=== PATIENT | male | born 2000 | race Hispanic/Latino ===

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

== ENCOUNTER 2020-06-02 12:04 | Emergency (ER) | payer OTHER, SELFPAY ==
[2020-06-02] MEDS ORDERED: Dexamethasone 10 MG/ML VIAL ONE (12:31)
== END 2020-06-02 12:39 | disposition home or self-care (01) ==
LOC: ERS 12:04
DX: S61.210A Laceration without foreign body of right index finger without damage to nail, initial encounter (principal); S61.212A Laceration without foreign body of right middle finger without damage to nail, initial encounter; R05 Cough; R06.2 Wheezing; X58.XXXA Exposure to other specified factors, initial encounter
CPT/HCPCS: 99282; J1100

== ENCOUNTER 2024-05-04 18:19 | Emergency (ER) | payer SELFPAY | END 2024-05-04 19:04 | disposition home or self-care (01) | LOC: ERS 18:19 | DX: T23.131A Burn of first degree of multiple right fingers (nail), not including thumb, initial encounter (principal); X10.2XXA Contact with fats and cooking oils, initial encounter | CPT/HCPCS: 99282 ==